=== PATIENT | female | born 1975 | race Caucasian/White ===

== ENCOUNTER 2024-01-30 15:04 | Emergency (ER) | payer BC ==
[~2024-01-30] VITALS: Ht 157.5 cm; Wt 68.0 kg
[2024-01-30 15:15] VITALS: BP_SYST 155; PULSE 82; RESP 16; TEMP 98; O2SAT 98
[2024-01-30 15:51] LABS: WHITE BLOOD COUNT (AUTO) 7.5 K/uL (4.8-10.8)
[2024-01-30 16:03] LABS: BILIRUBIN,URINE NEGATIVE (NEGATIVE); BLOOD, URINE 3+ (NEGATIVE); CLARITY/URINE SL CLOUDY (CLEAR); GLUCOSE,URINE NEGATIVE (NEGATIVE); KETONES,URINE NEGATIVE (NEGATIVE); LEUKOCYTE ESTERASE ,URINE 3+ (NEGATIVE); NITRITE, URINE NEGATIVE (NEGATIVE); PROTEIN URINE TRACE (NEGATIVE); UROBILINOGEN,URINE 0.2 (0.2-1.0)
[2024-01-30 16:03] LABS: BASOPHILS # (AUTO) 0.1 K/uL (0.0-0.2); EOSINOPHILS # (AUTO) 0.1 K/uL (0.0-0.4); EOSINOPHILS % (AUTO) 1.7 % (0.0-4.0); HEMATOCRIT 41.7 % (36-48); HEMOGLOBIN 14.5 g/dL (12.0-16.0); LYMPHOCYTES # (AUTO) 2.6 K/uL (1.0-5.5); LYMPHOCYTES % (AUTO) 34.3 % (20.5-51.5); MEAN CORPUSCULAR HEMOGLOBIN 33 pg (27-31); MEAN CORPUSCULAR HGB CONC 35 % (32-36); MEAN CORPUSCULAR VOLUME 95 fL (79.0-98.0); MONOCYTES # (AUTO) 0.4 K/uL (0.0-1.0); MONOCYTES % (AUTO) 5.9 % (1.7-9.3); NEUTROPHILS # (AUTO) 4.3 K/uL (1.8-7.7); NEUTROPHILS % (AUTO) 57.1 % (40.0-70.0); PLATELET COUNT (AUTO) 362 K/uL (130-430); RED BLOOD CELL COUNT(AUTO) 4.38 MIL/uL (4.2-6.2); RED CELL DISTRIBUTION WIDTH 12.7 % (9.0-15.0)
[2024-01-30 16:32] LABS: ALBUMIN 4.2 g/dL (3.4-4.8); CALCIUM 9.7 mg/dL (8.4-11.0); CREATININE 0.79 mg/dL (0.55-1.30); POTASSIUM 4.1 mmol/L (3.5-5.1); SERUM HCG (QUALITATIVE) NEGATIVE (NEGATIVE); TOTAL BILIRUBIN 0.4 mg/dL (0.0-1.0)
[2024-01-30 16:32] LABS: COLOR,URINE RED (YELLOW)
[2024-01-30 16:33] LABS: BILIRUBIN,DIRECT 0.1 mg/dL (0.0-0.3)
[2024-01-30 16:38] LABS: PROTHROMBIN TIME 10.3 SECS (9.5-12.5)
[2024-01-30 16:42] LABS: BACTERIA,URINE FEW /HPF (None Seen); MUCUS,URINE None Seen /LPF (None Seen); RBC,URINE >100 /HPF (0-3)
[2024-01-30] MEDS ORDERED: TRAM50TA2 PO (17:27)
[2024-01-30] MEDS ORDERED: IBUP-1969 PO (17:27)
[2024-01-30] MEDS ORDERED: NITR-85 PO (17:27)
[2024-01-30 17:42] VITALS: BP_SYST 155; PULSE 82; RESP 16; TEMP 98; O2SAT 98
== END 2024-01-30 17:44 | disposition home or self-care (01) ==
LOC: SED 15:04
DX: R10.84 Generalized abdominal pain (principal); R30.0 Dysuria; Z79.899 Other long term (current) drug therapy; Z79.2 Long term (current) use of antibiotics
CPT/HCPCS: 36415; 80048; 80076; 81000; 81001; 81015; 81025; 82150; 83605; 83690; 84703; 85025; 85610; 85730; 87086; 99284